=== PATIENT | female | born 1930 | race Caucasian/White ===

== ENCOUNTER 2019-08-28 13:45 | Emergency (ER) | payer OTHER ==
[~2019-08-28] VITALS: Ht 149.9 cm; Wt 56.7 kg
--- NOTE | 2019-08-28 14:01 | NUR ---
PT [id number] C/O RIB AREA PAIN AFTER [employer] S/P CHOKING ON FOOD, PT IS AAOX3 ENGLISH SPEAKING ONLY, NOT IN RESPIRATORY DISTRESS, NOTED VOMITING 1X, HOOKED TO MONITOR, KEPT RESTED AND COMFORTABLE, WILL CONTINUE TO MONITOR.
--- NOTE | 2019-08-28 14:04 | NUR ---
PT SEEN AND EXAMINED BY .
[2019-08-28] MEDS ORDERED: ONDANSETRON HCL/PF 4 MG/2 ML VIAL ONE (14:10)
--- NOTE | 2019-08-28 14:10 | NUR ---
HEALTHCARE APPLICATIONS ANALYST AT BEDSIDE FOR XRAY.
[2019-08-28 14:25] LABS: BASOPHILS % (AUTO) 0.9 % (0.0-2.0); EOSINOPHILS % (AUTO) 1.7 % (0.0-6.0); HEMATOCRIT 32 % (33-45); HEMOGLOBIN 10.1 g/dL (11.5-14.8); LYMPHOCYTES # (AUTO) 1.4 /CMM (0.8-4.8); LYMPHOCYTES % (AUTO) 28.4 % (20.0-44.0); MEAN CORPUSCULAR HGB CONC 32 g/dl (31.0-36.0); MEAN CORPUSCULAR VOLUME 85 fL (82-100); MONOCYTES # (AUTO) 0.4 /CMM (0.1-1.30); MONOCYTES % (AUTO) 7.6 % (2.0-12.0); NEUTROPHILS % (AUTO) 61.4 % (43.0-81.0); PLATELET COUNT (AUTO) 168 /CMM (150-450); RED BLOOD CELL COUNT(AUTO) 3.75 MIL/uL (4.0-5.2); WHITE BLOOD COUNT (AUTO) 4.8 K/uL (4.3-11.0)
[2019-08-28] MEDS ORDERED: ONDANSETRON HCL/PF - ER 4 MG/2 ML VIAL IV ONE (14:30)
[2019-08-28 14:54] LABS: CALCIUM, SERUM 9.3 mg/dL (8.5-10.1); CARBON DIOXIDE 24 mmol/L (21-32); CHLORIDE 106 mmol/L (98-107); CREATININE 1.3 mg/dL (0.6-1.3); GLUCOSE 154 mg/dL (74-106); POTASSIUM 3.9 mmol/L (3.5-5.1); SODIUM SERUM 142 mmol/L (136-145); UREA NITROGEN, BLOOD 34 mg/dL (7-18)
[2019-08-28 14:56] LABS: D-DIMER 2.5 mg/L(FEU (0.17-0.50)
[2019-08-28 15:06] LABS: ALANINE AMINOTRANSFERASE 19 U/L (12-78); ALBUMIN 3.2 g/dL (3.4-5.0); ALKALINE PHOSPHATASE 65 U/L (46-116); ASPARTATE AMINOTRANSFERASE 22 U/L (15-37); B-TYPE NATRIURETIC PEPTIDE 2533 PG/ML (0-125); BILIRUBIN,DIRECT 0.1 mg/dL (0.0-0.2); BILIRUBIN,TOTAL 0.4 mg/dL (0.2-1.0)
[2019-08-28] MEDS ORDERED: ACETAMINOPHEN 650 MG/20.3 ML UDC PO ONE (15:30)
[2019-08-28] MEDS ORDERED: ACETAMINOPHEN 650 MG/20.3 ML UDC ONE (15:41)
--- NOTE | 2019-08-28 15:47 | NUR ---
IV removed. Catheter intact and site benign. Pressure and 4x4 applied to site. No bleeding noted. Patient discharged to home in stable condition. Written and verbal after care instructions given. Patient verbalizes understanding of instruction.
[2019-08-28 15:48] VITALS: BP 127/80
== END 2019-08-28 15:48 | disposition home or self-care (01) ==
LOC: ER 13:47
DX: R07.89 Other chest pain (principal); R09.89 Other specified symptoms and signs involving the circulatory and respiratory systems; J02.9 Acute pharyngitis, unspecified; I48.91 Unspecified atrial fibrillation; I10 Essential (primary) hypertension; E11.9 Type 2 diabetes mellitus without complications; Z95.0 Presence of cardiac pacemaker; Z96.641 Presence of right artificial hip joint; Z98.890 Other specified postprocedural states
CPT/HCPCS: 36415; 71045; 80048; 80076; 83880; 84484; 85025; 85378; 85730; 93005 ×2; 96374; 99285; J2405 ×2